=== PATIENT | female | born 1970 | race Caucasian/White ===

== ENCOUNTER 2016-11-20 08:07 | Day surgery (SDC) | payer OTHER ==
[~2016-11-20 08:07] MED LIST: PREGABALIN 150 MG CAP PO ONE; SCOPOLAMINE HYDROBROMIDE 1.5 MG PATCH TD ONE; ceFAZolin 2 GM/DEXTROSE 100 ML IV ONE
[2016-11-20] MEDS ORDERED: ACETAMINOPHEN 500 MG TAB ONE (08:40)
[2016-11-20] MEDS ORDERED: PREGABALIN 150 MG CAP ONE (08:41)
[2016-11-20] MEDS ORDERED: CEFAZOLIN 2 GM/DEXTROSE/100 ML BAG IV ONE (08:42)
[2016-11-20] MEDS ORDERED: SCOPOLAMINE HYDROBROMIDE 1.5 MG PATCH TD ONE (08:44)
[2016-11-20] MEDS ORDERED: PROPOFOL 200 MG/20 ML VIAL ONE (10:27)
[2016-11-20] MEDS ORDERED: fentaNYL 100 MCG/2 ML INJ ONE (10:27)
[2016-11-20] MEDS ORDERED: MIDAZOLAM 2 MG/2 ML VIAL ONE (10:29)
[2016-11-20] MEDS ORDERED: LIDOCAINE 2% 5 ML SDV ONE (11:09)
[2016-11-20] MEDS ORDERED: ROCURONIUM 50 MG/5 ML VIAL ONE (11:09)
[2016-11-20] MEDS ORDERED: ONDANSETRON 4 MG/2 ML VIAL ONE ×2 (11:09→14:25)
[2016-11-20] MEDS ORDERED: METOCLOPRAMIDE 10 MG/2 ML VIAL ONE (11:09)
[2016-11-20] MEDS ORDERED: NEOSTIGMINE METHYLSULFATE 5 MG/5 ML SYR ONE (11:09)
[2016-11-20] MEDS ORDERED: epHEDrine SULFATE 10 MG/ML SYR ONE (11:09)
[2016-11-20] MEDS ORDERED: GLYCOPYRROLATE 0.2 MG/1 ML VIAL ONE (11:09)
[2016-11-20] MEDS ORDERED: OXYCODONE/APAP 5/325 TAB ONE (14:37)
== END 2016-11-20 15:25 | disposition home or self-care (01) ==
LOC: FSGY 08:07
PROVIDERS: ATTEND Orthopaedic Surgery Sports Medicine
PROC: 0SQ94ZZ Repair Right Hip Joint, Percutaneous Endoscopic Approach (ICD-10-PCS; principal; 2016-11-20 10:51)
DX: M25.852 Other specified joint disorders, left hip (principal)
CPT/HCPCS: 29914; 76001; C1769; C1713; J0690; J2250; J2405; J2704; J2710; J2765; J3010